=== PATIENT | male | born 1945 | race Caucasian/White ===

== ENCOUNTER → 2025-01-03 | Outpatient (CLI) | payer OTHER ==
[2025-01-03 20:41] LABS: Microalb/Creat Ratio UR, Rand 10.727 mg/g (0.000-30.000); Microalbumin, Random Urine 17.7 mg/L (0.000-20.000)
== END ==
LOC: LAB 15:00 → LAB SHORT 15:00
PROVIDERS: Nurse Practitioner Family
DX: E11.22 Type 2 diabetes mellitus with diabetic chronic kidney disease (principal); N18.30 Chronic kidney disease, stage 3 unspecified
CPT/HCPCS: 82043; 82570